=== PATIENT | male | born 1970 | race Caucasian/White ===

== ENCOUNTER 2020-02-03 17:09 | Emergency (ER) | payer MEDICAID ==
[~2020-02-03] VITALS: Ht 175.3 cm; Wt 91.0 kg
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
[2020-02-03] MEDS ORDERED: ESCI10TA10 PO (17:31)
--- NOTE | 2020-02-03 17:40 | NUR ---
ROOM SECURED. PT COOPERATIVE, CALM. SITTER OUTSIDE ROOM.
[2020-02-03 18:03] LABS: BASOPHILS % (AUTO) 1 % (0-1); EOSINOPHILS % (AUTO) 6 % (1-7); LYMPHOCYTES % (AUTO) 30 % (22-44); MEAN CORPUSCULAR HEMOGLOBIN 31.6 pg (27.5-34.5); MEAN CORPUSCULAR HGB CONC 33.2 g/dL (33.2-36.2); MEAN PLATELET VOLUME 8.3 fL (7.4-10.4); MONOCYTES % (AUTO) 13 % (2-9); NEUTROPHILS % (AUTO) 50 % (42-75); PLATELET COUNT 298 x10^3/uL (130-400); RED BLOOD COUNT 4.74 x10^6/uL (4.38-5.82); RED CELL DISTRIBUTION WIDTH 12.7 % (9.4-14.8)
[2020-02-03 18:04] LABS: ALANINE AMINOTRANSFERASE 22 U/L (12-78); ALBUMIN 3.4 g/dL (3.4-5.0); ANION GAP 9 mmol/L (5-15); CHLORIDE 109 mmol/L (98-107); CREATININE 1.09 mg/dL (0.7-1.3)
[2020-02-03 18:14] LABS: ALKALINE PHOSPHATASE 90 U/L (45-117); BILIRUBIN,TOTAL 0.4 mg/dL (0.2-1.0); SALICYLATE LEVEL < 1.7 mg/dL (2.8-20.0); TOTAL PROTEIN 6.6 g/dL (6.4-8.2)
[2020-02-03 18:22] LABS: MD NO
[2020-02-03 18:22] LABS: AMPHETAMINE SCREEN, URINE Negative (Negative); BARBITURATE SCREEN, URINE Negative (Negative); BENZODIAZEPINE SCREEN, URINE Negative (Negative); CANNABINOID SCREEN, URINE Negative (Negative); COCAINE SCREEN, URINE Negative (Negative); METHADONE SCREEN, URINE Negative (Negative); OPIATE SCREEN, URINE Negative (Negative)
--- NOTE | 2020-02-03 18:25 | NUR ---
PT LYING QUIETLY ON GURNEY W/ BLANKET COVERING HEAD. PT REMOVED COVER TO ANSWER THIS RN'S QUESTIONS. PT CALM, COOPERATIVE, RESP EVEN & UNLABORED, SPEECH CLEAR, SKIN WNL. ROOM REMAINS SECURED. SITTER OUTSIDE ROOM.
--- NOTE | 2020-02-03 18:30 | NUR ---
WEAVER WIRE LOOM AND CONTINUOUS PULSE OX ORDERED PER DHARA HO. GIVEN PT'S DESIRE TO , AND LENGTH OF CORDS, ORDER WILL BE CONFIRMED.
--- NOTE | 2020-02-03 18:41 | NUR ---
NYLON WINDER & PULSE OX APPLIED. FOOD AND BEVERAGE OFFER REFUSED BY PT. SIDE RAIL UP X1, CALL LIGHT W/IN REACH. NOTIFIED SITTER OF SITUATION.
--- NOTE | 2020-02-03 19:44 | NUR ---
RESTING QUIETLY ON GURNEY. MONITORING CONTINUING: NSR. RESP EVEN & UNLABORED. WATER AND LENNY CRACKERS PROVIDED. SITTER OUTSIDE ROOM.
--- NOTE | 2020-02-03 20:00 | NUR ---
PT REPORT TO ROLAND PROCTOR. PT CARE TRANSFERRED.
--- NOTE | 2020-02-03 20:17 | NUR ---
REPORT FROM ROBYN WATKINS. THIS IS A 49 YO M BIB EMS TODAY W/ C/O SA. PT STATES TAKING 19 LEXAPRO AND DRANK APPROX 6-8 BEERS. PT REPORTS NO CHANGES IN SYMPTOMS SINCE ARRIVAL. PT RESTING ON GURNEY CONNECTED TO MONITORING REQUESTED BY ED PROVIDER. LAMONT MEJIA.
--- NOTE | 2020-02-03 20:17 | NUR ---
PT PLEASANT AND COOPERATIVE W/ VS.
--- NOTE | 2020-02-03 20:20 | NUR ---
PER VIC JULES PT TO REMAIN ON MONITORING FOR 6 HOURS PER POISION CONTROL PROTOCOL.
--- NOTE | 2020-02-03 20:48 | NUR ---
PT TRANSFERED ONTO HOSPITAL BED W/O INCIDENT. PT CONNECTED TO MONITORING, 1 GARAGE DOOR DOWN AND SITTER OUTSIDE ROOM FOR SAFETY. RESP EVEN AND UNLABORED, LAMONT.
--- NOTE | 2020-02-03 21:34 | NUR ---
PT RESTING ON HOSPITAL BED, CONNECTED TO MONITORING, 1 GARAGE DOOR DOWN AND SITTER OUTSIDE ROOM FOR SAFETY. RESP EVEN AND UNLABORED, LAMONT.
[2020-02-03 23:02] VITALS: BP 95/74
--- NOTE | 2020-02-03 23:05 | NUR ---
PT SLEEPING ON HOSPITAL BED, CONNECTED TO MONITORING, 1 GARAGE DOOR DOWN AND SITTER OUTSIDE ROOM FOR SAFETY. VSS, RESP EVEN AND UNLABORED, NADN.
--- NOTE | 2020-02-04 00:23 | NUR ---
PT SLEEPING ON HOSPITAL BED, CONNECTED TO MONITORING, 1 GARAGE DOOR DOWN AND SITTER OUTSIDE ROOM FOR SAFETY. VSS, RESP EVEN AND UNLABORED, NADN.
--- NOTE | 2020-02-04 00:41 | NUR ---
PER DR.FIDALGO CORADO TO REMOVE PT FROM MONITORING. PT SLEEPING ON HOSPITAL BED W/ SITTER OUTSIDE ROOM AND GARAGE DOORS DOWNX2 FOR SAFETY. RESP EVEN AND UNLABORED, LAMONT.
--- NOTE | 2020-02-04 01:19 | NUR ---
REPORT GIVEN TO ANA WATKINS FROM [facility]. REPORTS THEY WILL ACCEPT PT AT 0330.
--- NOTE | 2020-02-04 01:20 | NUR ---
MT: [facility] AT [facility] ACCEPTED PT FOR 0330. ACCEPTING DR IS DR. HARPER.
--- NOTE | 2020-02-04 02:15 | NUR ---
PT SLEEPING ON HOSPITAL BED W/ GARAGE DOORS DOWNX2 AND SITTER OUTSIDE ROOM FOR SAFETY. RESP EVEN AND UNLABORED, NADN. AWAITING TX TO [place].
--- NOTE | 2020-02-04 02:29 | NUR ---
PT UPDATED ON POC FOR TX TO [facility] AT 0330.
--- NOTE | 2020-02-04 03:28 | NUR ---
REPORT GIVEN TO EMS. 3 BELONGINGS BAGS GIVEN TO EMS FOR TRANSPORT. PT AMBULATORY W/ A STEADY GAIT. RESP EVEN AND UNLABORED, NADN.
== END 2020-02-04 03:31 ==
LOC: ED 02-04 00:47
DX: T14.91XA Suicide attempt, initial encounter (principal); T43.222A Poisoning by selective serotonin reuptake inhibitors, intentional self-harm, initial encounter; F32.9 Major depressive disorder, single episode, unspecified; F10.120 Alcohol abuse with intoxication, uncomplicated; F41.1 Generalized anxiety disorder; R94.31 Abnormal electrocardiogram [ECG] [EKG]; Y90.0 Blood alcohol level of less than 20 mg/100 ml; X83.8XXA Intentional self-harm by other specified means, initial encounter; Y93.89 Activity, other specified; Y92.89 Other specified places as the place of occurrence of the external cause; Y99.8 Other external cause status
CPT/HCPCS: 36415; 80053; 80307; 84443; 85025; 93005; 99285

== ENCOUNTER 2020-02-23 07:53 | Emergency (ER) | payer MEDICAID ==
[~2020-02-23] VITALS: Ht 175.3 cm; Wt 89.0 kg
[~2020-02-23 07:53] MED LIST: ESCI10TA10 PO
--- NOTE | 2020-02-23 08:13 | NUR ---
PT BROUGHT BACK FROM TRIAGE WITH CHIEF COMPLAINT OF "FLU FOR FEW DAYS ", REPORTS FATIGUE, FEVER, SORE THROAT, NASAL CONGESTION.
--- NOTE | 2020-02-23 09:05 | NUR ---
JOLLY SPARKS AT BEDSIDE FOR EVALUATION
[2020-02-23 09:15] VITALS: BP 116/72
--- NOTE | 2020-02-23 09:15 | NUR ---
dwayne valentin. pt geoffrey goldstein. blanket provided at pt request. call light in reach and pt encouraged to call for any needs.
--- NOTE | 2020-02-23 10:22 | NUR ---
pt dc by thony ortiz
[2020-02-23] MEDS ORDERED: KETOROLAC 30 MG/1 ML IM ONE (10:30)
== END 2020-02-23 10:24 | disposition home or self-care (01) ==
LOC: ED 08:55
DX: B34.9 Viral infection, unspecified (principal); Z20.828 Contact with and (suspected) exposure to other viral communicable diseases; R09.89 Other specified symptoms and signs involving the circulatory and respiratory systems
CPT/HCPCS: 71045; 87635; 99284

== ENCOUNTER 2020-03-20 12:31 | Emergency (ER) | payer MEDICAID ==
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
[2020-03-20 13:21] LABS: MICROSCOPIC NOT IND
[2020-03-20 13:25] LABS: CHLORIDE 102 mmol/L (98-107)
[2020-03-20 13:40] LABS: ALANINE AMINOTRANSFERASE 21 U/L (12-78); ALBUMIN 3.2 g/dL (3.4-5.0); ALKALINE PHOSPHATASE 106 U/L (45-117); ANION GAP 6 mmol/L (5-15); BILIRUBIN,TOTAL 0.9 mg/dL (0.2-1.0); CALCIUM 8.4 mg/dL (8.5-10.1); CREATININE 0.83 mg/dL (0.7-1.3); TOTAL PROTEIN 7.2 g/dL (6.4-8.2)
[2020-03-20 13:41] LABS: AMPHETAMINE SCREEN, URINE Negative (Negative); BARBITURATE SCREEN, URINE Negative (Negative); BENZODIAZEPINE SCREEN, URINE Negative (Negative); CANNABINOID SCREEN, URINE Negative (Negative); COCAINE SCREEN, URINE Negative (Negative); METHADONE SCREEN, URINE Negative (Negative); OPIATE SCREEN, URINE Negative (Negative)
[2020-03-20 13:42] LABS: SALICYLATE LEVEL < 1.7 mg/dL (2.8-20.0)
[2020-03-20 14:52] LABS: BASOPHILS % (AUTO) 1 % (0-1); EOSINOPHILS % (AUTO) 2 % (1-7); LYMPHOCYTES % (AUTO) 11 % (22-44); MEAN CORPUSCULAR HEMOGLOBIN 31.7 pg (27.5-34.5); MEAN CORPUSCULAR HGB CONC 33.7 g/dL (33.2-36.2); MEAN PLATELET VOLUME 8.9 fL (7.4-10.4); MONOCYTES % (AUTO) 8 % (2-9); NEUTROPHILS % (AUTO) 79 % (42-75); PLATELET COUNT 182 x10^3/uL (130-400); RED BLOOD COUNT 4.65 x10^6/uL (4.38-5.82); RED CELL DISTRIBUTION WIDTH 13.4 % (9.4-14.8)
[2020-03-20 15:00] LABS: MD NO
--- NOTE | 2020-03-20 15:22 | NUR ---
BREAK RN- [facility] AT BEDSIDE FOR EVALUATION.
--- NOTE | 2020-03-20 15:22 | NUR ---
THROUGHPUT RN: [facility] WILL ACCEPT PT AFTER COVID TEST AND UPDATED VS.
[2020-03-20 16:10] VITALS: BP 120/77
--- NOTE | 2020-03-20 16:10 | NUR ---
PT SUPINE ON CASSIE, AMBER, VSS. "I FEEL LIKE I CANT STOP FIDGETING, IM MIRNA A LITTLE", PT REPOSITIONED IN BED PER REQUEST. PT DENIES ANY NEEDS AT THIS TIME.
--- NOTE | 2020-03-20 17:10 | NUR ---
PT TO BE ADMITTED TO [facility]. REPORT GIVEN TO MEET. PT GOING TO ROOM 390. WILL BE TRANSPORTED WITH 2 TECHS. BE VERBALIZED UNDERSTANDING OF D/C PLAN. PIV REMOVED AND PRESSURE DRESSING APPLIED.
[2020-03-20] MEDS ORDERED: OLAN10TA3 PO (18:20)
[2020-03-20] MEDS ORDERED: BUPR-86 PO (18:20)
[2020-03-20] MEDS ORDERED: BUPR150T73 PO (18:31)
== END 2020-03-20 17:28 | disposition home or self-care (01) ==
LOC: ED 14:16
DX: T43.592A Poisoning by other antipsychotics and neuroleptics, intentional self-harm, initial encounter (principal); Z20.828 Contact with and (suspected) exposure to other viral communicable diseases; F32.2 Major depressive disorder, single episode, severe without psychotic features; R94.31 Abnormal electrocardiogram [ECG] [EKG]; E11.9 Type 2 diabetes mellitus without complications; Y92.89 Other specified places as the place of occurrence of the external cause
CPT/HCPCS: 36415; 80053; 80299; 80307; 80320; 80329; 81003; 84443; 85025; 87635; 93005; 99285; G0480

== ENCOUNTER 2020-03-20 16:04 | Inpatient (IN) | payer MEDICAID ==
[~2020-03-20] VITALS: Ht 175.3 cm; Wt 83.7 kg
[2020-03-20] MEDS ORDERED: ONDANSETRON ODT 4 MG PO PRN (16:30)
[2020-03-20] MEDS ORDERED: DOCUSATE 100 MG CAPSULE PO PRN (16:30)
[2020-03-20] MEDS ORDERED: POLYETHYLENE GLYCOL 17 GM PACKET PO PRN (16:30)
[2020-03-20] MEDS ORDERED: BISACODYL 10 MG SUPP PR PRN (16:30)
[2020-03-20 18:03] VITALS: BP 118/81
[2020-03-20] MEDS ORDERED: BUPR-86 PO (18:20)
[2020-03-20] MEDS ORDERED: OLAN10TA3 PO (18:20)
[2020-03-20] MEDS ORDERED: BUPR150T73 PO (18:31)
[2020-03-20 19:59] VITALS: BP 118/75
[2020-03-21 07:15] VITALS: BP 122/72
[2020-03-21 07:46] LABS: CHOL/HDL RATIO 6.5; LDL/HDL RATIO 4.4 (0.5-3.0)
[2020-03-21] MEDS: ACETAMINOPHEN 325 MG TABLET PO PRN (08:48)
[2020-03-21] MEDS: BUPROPION SR 150 MG TABLET PO SCH (12:04)
[2020-03-21 19:51] VITALS: BP 131/82
[2020-03-21] MEDS: QUETIAPINE 100MG TABLET PO SCH (20:43)
[2020-03-22 07:18] VITALS: BP 114/75
[2020-03-22] MEDS: BUPROPION SR 150 MG TABLET PO SCH ×2 (08:35→12:09)
[2020-03-22 19:58] VITALS: BP 155/80
[2020-03-22] MEDS: QUETIAPINE 100MG TABLET PO SCH (20:26)
[2020-03-22] MEDS: ACETAMINOPHEN 325 MG TABLET PO PRN (20:26)
[2020-03-23 07:22] VITALS: BP 112/72
[2020-03-23] MEDS: BUPROPION SR 150 MG TABLET PO SCH ×2 (08:42→12:10)
[2020-03-23] MEDS: LORATADINE 10 MG TABLET PO SCH (14:24)
[2020-03-23 19:57] VITALS: BP 127/84
[2020-03-23] MEDS: ACETAMINOPHEN 325 MG TABLET PO PRN (20:25)
[2020-03-23] MEDS: QUETIAPINE 100MG TABLET PO SCH (20:25)
[2020-03-24 07:23] VITALS: BP 119/80
[2020-03-24] MEDS: BUPROPION SR 150 MG TABLET PO SCH ×2 (09:04→12:37)
[2020-03-24] MEDS: LORATADINE 10 MG TABLET PO SCH (09:04)
[2020-03-24 19:35] VITALS: BP 142/85
[2020-03-24] MEDS: ACETAMINOPHEN 325 MG TABLET PO PRN (20:33)
[2020-03-24] MEDS: QUETIAPINE 100MG TABLET PO SCH (20:33)
[2020-03-25 07:00] VITALS: BP 131/79
[2020-03-25] MEDS: ACETAMINOPHEN 325 MG TABLET PO PRN (08:44)
[2020-03-25] MEDS: BUPROPION SR 150 MG TABLET PO SCH ×2 (08:44→12:18)
[2020-03-25] MEDS: LORATADINE 10 MG TABLET PO SCH (08:44)
[2020-03-25] MEDS ORDERED: BUPR150T73 PO (11:32)
[2020-03-25] MEDS ORDERED: QUET100T PO (11:32)
[2020-03-25] MEDS ORDERED: LORA-247 PO (11:32)
== END 2020-03-25 13:50 | disposition home or self-care (01) | DRG 885 ==
LOC: 3E 17:25
PROVIDERS: ADMIT Psychiatry & Neurology Psychosomatic Medicine; ATTEND Psychiatry & Neurology Psychosomatic Medicine
DX: F33.2 Major depressive disorder, recurrent severe without psychotic features (principal); F41.1 Generalized anxiety disorder; F40.10 Social phobia, unspecified; F43.10 Post-traumatic stress disorder, unspecified; F10.21 Alcohol dependence, in remission; F98.8 Other specified behavioral and emotional disorders with onset usually occurring in childhood and adolescence; G47.00 Insomnia, unspecified; E78.5 Hyperlipidemia, unspecified; Z91.5 Personal history of self-harm; Z79.899 Other long term (current) drug therapy; Z88.2 Allergy status to sulfonamides; Z90.89 Acquired absence of other organs
CPT/HCPCS: 36415; 80061; 93005

== ENCOUNTER 2020-09-14 06:41 | Emergency (ER) | payer MEDICAID ==
[~2020-09-14] VITALS: Ht 175.3 cm; Wt 81.0 kg
[~2020-09-14 06:41] MED LIST changes: +BUPR-86 PO; +BUPR150T73 PO; +LORA-247 PO; +OLAN10TA3 PO; +QUET100T PO
--- NOTE | 2020-09-14 06:54 | NUR ---
Report to Dia WATKINS
--- NOTE | 2020-09-14 06:55 | NUR ---
Pt BIB EMS from [facility] station for taking 30 10mg tabs of escitalopram around 5am. Pt also reports drinking 96oz of beer. EKG done, connected to all monitors, belongings collected and placed in bag, room secure due to pt statement of SI, all VSS, A&O x4, NADN.
[2020-09-14] MEDS ORDERED: CHARCOAL/SORBITOL 50 GM/240 ML PO ONE (07:00)
[2020-09-14 07:12] LABS: BASOPHILS % (AUTO) 1 % (0-1); EOSINOPHILS % (AUTO) 1 % (1-7); LYMPHOCYTES % (AUTO) 21 % (22-44); MEAN CORPUSCULAR HEMOGLOBIN 32.9 pg (27.5-34.5); MEAN CORPUSCULAR HGB CONC 34.4 g/dL (33.2-36.2); MONOCYTES % (AUTO) 9 % (2-9); NEUTROPHILS % (AUTO) 67 % (42-75); PLATELET COUNT 279 x10^3/uL (130-400); RED BLOOD COUNT 4.83 x10^6/uL (4.38-5.82); RED CELL DISTRIBUTION WIDTH 13.7 % (9.4-14.8)
[2020-09-14 07:24] LABS: ALBUMIN 3.9 g/dL (3.4-5.0); ANION GAP 6 mmol/L (5-15); CALCIUM 8.3 mg/dL (8.5-10.1); CHLORIDE 105 mmol/L (98-107)
[2020-09-14 07:25] LABS: SALICYLATE LEVEL < 1.7 mg/dL (2.8-20.0)
[2020-09-14 07:27] LABS: CREATININE 0.73 mg/dL (0.7-1.3)
[2020-09-14] MEDS ORDERED: ONDANSETRON ODT 4 MG PO ONE (07:30)
[2020-09-14] MEDS ORDERED: ONDANSETRON ODT 4 MG ONE (07:57)
[2020-09-14] MEDS ORDERED: CHARCOAL/SORBITOL 50 GM/240 ML ONE (07:57)
--- NOTE | 2020-09-14 08:06 | NUR ---
Pt given Zofran as ordered. Pt started to drink Charcoal as ordered when d/c order noted and pt instruction to stop given. Pt took approximately 10mL PO before d/c'd. Pt able to swish and spit with water and call light placed in reach. Warm blanket provided. Pt noted to be on EKG leads without being attached to bedside monitor. Attached to bedside monitor and EKG review performed with QRS and QT interval noted to be WNL, no prolongation present. Oral temp remains WNL and no clonus, sz activity or hyperreflexia present at this time.
--- NOTE | 2020-09-14 08:35 | NUR ---
UA sample obtained and sent.
[2020-09-14 08:52] LABS: AMPHETAMINE SCREEN, URINE Negative (Negative); BARBITURATE SCREEN, URINE Negative (Negative); BENZODIAZEPINE SCREEN, URINE Negative (Negative); CANNABINOID SCREEN, URINE Negative (Negative); COCAINE SCREEN, URINE Negative (Negative); METHADONE SCREEN, URINE Negative (Negative); OPIATE SCREEN, URINE Negative (Negative)
--- NOTE | 2020-09-14 10:45 | NUR ---
Pt ambulatory to restroom. Pt reported to malinda who is telling this RN now that he has diarrhea. Malinda reports this is the 3rd trip to the restroom this hour.
--- NOTE | 2020-09-14 11:29 | NUR ---
Breathalyzer assessment requested. Pt states he has a HARDEN and would accept APAP or Ibu for pain if offered. PA notified.
--- NOTE | 2020-09-14 11:37 | NUR ---
Breathalyzer assessment completed. [employer] for psych notified of 0.000 reading, and he is now at bedside for evaluation.
[2020-09-14] MEDS ORDERED: ACETAMINOPHEN 500 MG TABLET ONE (11:44)
--- NOTE | 2020-09-14 11:47 | NUR ---
APAP given for HARDEN at this time.
[2020-09-14] MEDS ORDERED: ACETAMINOPHEN 500 MG TABLET PO ONE (12:00)
--- NOTE | 2020-09-14 12:15 | NUR ---
PIN MACHINE OPERATOR states pt is now on a legal hold and [facility] is looking into insurance before accepting pt with bed assignment.
--- NOTE | 2020-09-14 13:01 | NUR ---
TOOK REPORT FROM AARON WATKINS, ASSUME CARE AT THIS TIME.
--- NOTE | 2020-09-14 13:13 | NUR ---
Room is safe and secure with PSA outside room,NAD. Pt sleeping with even RR, 13 per min
[2020-09-14 15:23] VITALS: BP 124/74
--- NOTE | 2020-09-14 15:37 | NUR ---
GAVE REPORT TO OPHELIA Bradford RN
[2020-09-15] MEDS ORDERED: ESCI10TA10 PO (09:53)
== END 2020-09-14 15:00 | disposition home or self-care (01) ==
LOC: ED 06:59
DX: T14.91XA Suicide attempt, initial encounter (principal); T43.222A Poisoning by selective serotonin reuptake inhibitors, intentional self-harm, initial encounter; F32.9 Major depressive disorder, single episode, unspecified; E11.9 Type 2 diabetes mellitus without complications; Z20.822 Contact with and (suspected) exposure to COVID-19; R94.31 Abnormal electrocardiogram [ECG] [EKG]; Y92.9 Unspecified place or not applicable
CPT/HCPCS: 36415; 80048; 80299; 80307; 80320; 82040; 85025; 87426; 93005; 99285; Q0162; 80329; G0480

== ENCOUNTER 2020-09-14 14:54 | Inpatient (IN) | payer MEDICAID ==
[~2020-09-14] VITALS: Ht 175.3 cm; Wt 81.5 kg
[2020-09-14] MEDS ORDERED: ACETAMINOPHEN 325 MG TABLET PO PRN (15:30)
[2020-09-14] MEDS ORDERED: BISACODYL 10 MG SUPP PR PRN (15:30)
[2020-09-14] MEDS ORDERED: POLYETHYLENE GLYCOL 17 GM PACKET PO PRN (15:30)
[2020-09-14] MEDS ORDERED: ONDANSETRON ODT 4 MG PO PRN (15:30)
[2020-09-14] MEDS ORDERED: DOCUSATE 100 MG CAPSULE PO PRN (15:30)
[2020-09-14 17:19] VITALS: BP 143/101
[2020-09-14 19:50] VITALS: BP 132/81
[2020-09-15 06:28] LABS: CHOL/HDL RATIO 5.2; FREE T4 (FREE THYROXINE) 0.88 ng/dL (0.76-1.46); LDL/HDL RATIO 3.3 (0.5-3.0)
[2020-09-15 07:56] VITALS: BP 130/82
[2020-09-15] MEDS ORDERED: ESCI10TA10 PO (09:53)
[2020-09-15 10:43] LABS: MICROSCOPIC NOT IND
[2020-09-15 19:45] VITALS: BP 124/75
[2020-09-16 07:47] VITALS: BP 127/78
[2020-09-16 19:34] VITALS: BP 107/68
[2020-09-16] MEDS: DOXEPIN 25 MG CAPSULE PO SCH (20:27)
[2020-09-16] MEDS: OLANZAPINE 5 MG TABLET PO SCH (20:27)
[2020-09-17 07:18] VITALS: BP 117/70
[2020-09-17] MEDS ORDERED: BUPROPION SR 150 MG TABLET PO SCH (09:00)
[2020-09-17 19:15] VITALS: BP 105/70
[2020-09-17] MEDS: OLANZAPINE 5 MG TABLET PO SCH (20:06)
[2020-09-17] MEDS: DOXEPIN 25 MG CAPSULE PO SCH (20:06)
[2020-09-18 07:40] VITALS: BP 114/76
[2020-09-18 19:45] VITALS: BP 116/76
[2020-09-18] MEDS: OLANZAPINE 5 MG TABLET PO SCH (20:36)
[2020-09-18] MEDS: DOXEPIN 25 MG CAPSULE PO SCH (20:37)
[2020-09-19 07:39] VITALS: BP 120/77
[2020-09-19] MEDS: HYDROXYZINE PAMOATE 50MG CAP PO PRN (17:22)
[2020-09-19 20:03] VITALS: BP 128/79
[2020-09-19] MEDS: OLANZAPINE 5 MG TABLET PO SCH (20:09)
[2020-09-19] MEDS: DOXEPIN 25 MG CAPSULE PO SCH (20:09)
[2020-09-20 07:50] VITALS: BP 115/77
[2020-09-20] MEDS: HYDROXYZINE PAMOATE 50MG CAP PO PRN ×2 (07:53→15:49)
[2020-09-20 19:29] VITALS: BP 121/74
[2020-09-20] MEDS: DOXEPIN 25 MG CAPSULE PO SCH (20:22)
[2020-09-20] MEDS: OLANZAPINE 5 MG TABLET PO SCH (20:22)
[2020-09-21 07:40] VITALS: BP 109/89
[2020-09-21] MEDS: HYDROXYZINE PAMOATE 50MG CAP PO PRN (07:59)
[2020-09-21] MEDS ORDERED: DOXE25CA PO (13:27)
[2020-09-21] MEDS ORDERED: OLAN5TAB9 PO (13:27)
[2020-09-21] MEDS ORDERED: HYDR50CA2 PO (13:27)
== END 2020-09-21 14:20 | disposition home or self-care (01) | DRG 885 ==
LOC: 3E 15:48
PROVIDERS: ADMIT Psychiatry & Neurology Psychosomatic Medicine; ATTEND Psychiatry & Neurology Psychosomatic Medicine
DX: F31.4 Bipolar disorder, current episode depressed, severe, without psychotic features (principal); F10.20 Alcohol dependence, uncomplicated; F41.1 Generalized anxiety disorder; F43.10 Post-traumatic stress disorder, unspecified; F98.8 Other specified behavioral and emotional disorders with onset usually occurring in childhood and adolescence; G47.00 Insomnia, unspecified; Z91.5 Personal history of self-harm; Z88.2 Allergy status to sulfonamides; F90.9 Attention-deficit hyperactivity disorder, unspecified type; E78.1 Pure hyperglyceridemia; Z81.8 Family history of other mental and behavioral disorders; Y90.9 Presence of alcohol in blood, level not specified
CPT/HCPCS: 36415; 71045; 80061; 81003; 82140; 84439; 84443; 93005

== ENCOUNTER 2020-10-11 11:25 | Inpatient (IN) | payer MEDICAID ==
[~2020-10-11] VITALS: Ht 175.3 cm; Wt 95.5 kg
[~2020-10-11 11:25] MED LIST changes: +DOXE25CA PO; +HYDR50CA2 PO; +OLAN5TAB9 PO
[2020-10-11] MEDS ORDERED: BISACODYL 10 MG SUPP PR PRN (12:30)
[2020-10-11] MEDS ORDERED: POLYETHYLENE GLYCOL 17 GM PACKET PO PRN (12:30)
[2020-10-11] MEDS ORDERED: DOCUSATE 100 MG CAPSULE PO PRN (12:30)
[2020-10-11] MEDS ORDERED: ONDANSETRON ODT 4 MG PO PRN (12:30)
[2020-10-11] MEDS ORDERED: PLEASE ENTER HEIGHT AND WEIGHT MC SCH (15:00)
[2020-10-11 15:02] VITALS: BP 137/84
[2020-10-11 16:32] LABS: BASOPHILS % (AUTO) 1 % (0-1); EOSINOPHILS % (AUTO) 5 % (1-7); LYMPHOCYTES % (AUTO) 24 % (22-44); MEAN CORPUSCULAR HEMOGLOBIN 32.7 pg (27.5-34.5); MEAN CORPUSCULAR HGB CONC 34.3 g/dL (33.2-36.2); MEAN PLATELET VOLUME 7.8 fL (7.4-10.4); MONOCYTES % (AUTO) 12 % (2-9); NEUTROPHILS % (AUTO) 58 % (42-75); PLATELET COUNT 227 x10^3/uL (130-400)
[2020-10-11 16:40] LABS: ALANINE AMINOTRANSFERASE 23 U/L (12-78); ALBUMIN 2.8 g/dL (3.4-5.0); ANION GAP 3 mmol/L (5-15); CALCIUM 8.1 mg/dL (8.5-10.1); CHLORIDE 110 mmol/L (98-107); CREATININE 0.68 mg/dL (0.7-1.3)
[2020-10-11 16:43] LABS: ALKALINE PHOSPHATASE 79 U/L (45-117); BILIRUBIN,TOTAL 0.4 mg/dL (0.2-1.0); TOTAL PROTEIN 5.5 g/dL (6.4-8.2)
[2020-10-11 17:48] LABS: MICROSCOPIC NOT IND
[2020-10-11 19:28] VITALS: BP 129/82
[2020-10-11] MEDS: SENNA/DOCUSATE TABLET PO SCH (20:06)
[2020-10-11] MEDS: OLANZAPINE 5 MG TABLET PO SCH (20:06)
[2020-10-12 07:07] VITALS: BP 132/87
[2020-10-12] MEDS: SENNA/DOCUSATE TABLET PO SCH ×2 (08:30→20:46)
[2020-10-12] MEDS: ARIPIPRAZOLE 5 MG TABLET PO SCH (15:42)
[2020-10-12 19:19] VITALS: BP 127/76
[2020-10-12] MEDS: MELATONIN 5 MG TABLET PO SCH (20:46)
[2020-10-12] MEDS: OLANZAPINE 5 MG TABLET PO SCH (20:46)
[2020-10-13 07:27] VITALS: BP 127/84
[2020-10-13] MEDS: SENNA/DOCUSATE TABLET PO SCH ×2 (08:31→20:19)
[2020-10-13] MEDS: ARIPIPRAZOLE 5 MG TABLET PO SCH (08:31)
[2020-10-13] MEDS: HYDROXYZINE PAMOATE 50MG CAP PO PRN (11:32)
[2020-10-13] MEDS: ACETAMINOPHEN 325 MG TABLET PO PRN (19:39)
[2020-10-13 20:03] VITALS: BP 119/83
[2020-10-13] MEDS: MELATONIN 5 MG TABLET PO SCH (20:18)
[2020-10-13] MEDS: OLANZAPINE 5 MG TABLET PO SCH (20:20)
[2020-10-14 07:28] VITALS: BP 126/78
[2020-10-14] MEDS: ARIPIPRAZOLE 5 MG TABLET PO SCH (08:21)
[2020-10-14] MEDS: SENNA/DOCUSATE TABLET PO SCH ×2 (08:27→20:31)
[2020-10-14] MEDS: ACETAMINOPHEN 325 MG TABLET PO PRN ×2 (13:12→20:31)
[2020-10-14 19:08] VITALS: BP 132/75
[2020-10-14] MEDS: MELATONIN 5 MG TABLET PO SCH (20:31)
[2020-10-14] MEDS: OLANZAPINE 5 MG TABLET PO SCH (20:31)
[2020-10-15 07:19] VITALS: BP 112/78
[2020-10-15] MEDS: SENNA/DOCUSATE TABLET PO SCH ×2 (08:27→20:33)
[2020-10-15] MEDS: ARIPIPRAZOLE 5 MG TABLET PO SCH (08:27)
[2020-10-15] MEDS: HYDROXYZINE PAMOATE 50MG CAP PO PRN (13:58)
[2020-10-15] MEDS ORDERED: MELA5TAB14 PO (16:18)
[2020-10-15] MEDS ORDERED: SENN-211 PO (16:18)
[2020-10-15] MEDS ORDERED: ARIP5TAB13 PO (16:18)
[2020-10-15] MEDS ORDERED: HYDR50CA2 PO (16:18)
[2020-10-15 19:46] VITALS: BP 128/83
[2020-10-15] MEDS: OLANZAPINE 5 MG TABLET PO SCH (20:32)
[2020-10-15] MEDS: MELATONIN 5 MG TABLET PO SCH (20:33)
[2020-10-16 07:06] VITALS: BP 123/80
[2020-10-16] MEDS: ARIPIPRAZOLE 5 MG TABLET PO SCH (08:39)
[2020-10-16] MEDS: SENNA/DOCUSATE TABLET PO SCH (08:39)
== END 2020-10-16 10:00 | disposition home or self-care (01) | DRG 885 ==
LOC: 3E 14:49
PROVIDERS: ADMIT Psychiatry & Neurology Psychosomatic Medicine; ATTEND Psychiatry & Neurology Psychosomatic Medicine
DX: F33.2 Major depressive disorder, recurrent severe without psychotic features (principal); F10.20 Alcohol dependence, uncomplicated; F43.10 Post-traumatic stress disorder, unspecified; Y90.9 Presence of alcohol in blood, level not specified; G47.00 Insomnia, unspecified; Z79.899 Other long term (current) drug therapy; Z91.5 Personal history of self-harm; Z88.2 Allergy status to sulfonamides
CPT/HCPCS: 36415; 71045; 80053; 81003; 85025; 93005